=== PATIENT | female | born 1975 | race African-American/Black ===

== ENCOUNTER 2018-06-16 07:16 | Emergency (ER) | payer SELFPAY ==
[~2018-06-16] VITALS: Ht 167.6 cm; Wt 78.0 kg
[2018-06-16 07:27] VITALS: BP 137/57
[2018-06-16] MEDS ORDERED: DIPHTH,PERTUSS(ACELL),TET TOX 0.5 ML DISP.SYRIN. VAX IM ONE (07:30)
[2018-06-16] MEDS ORDERED: LIDOCAINE 2% 20 ML VIAL. IJ ONE (07:30)
--- NOTE | 2018-06-16 08:47 | PHYS DOC ---
Past Medical History Past Medical History: No Pertinent History Past Surgical History: Other Additional Past Surgical Histo: LEFT EYE Alcohol Use: Occasionally Drug Use: None Adult General Chief Complaint Chief Complaint: LACERATION/AVULSION HPI HPI Patient is a 42 year old f p/w chief complaint of laceration to the right pinky finger while reaching for a knife. occurred 8 pm, no n/t Current Medications Current Medications Current Medications Medications (Trade) Dose Ordered Sig/Prem Start Time Stop Time Status Last Admin Dose Admin Diphtheria/ Tetanus/Acell Pertussis (Boostrix) 0.5 ml ONCE ONCE 06/16/18 07:30 06/16/18 07:32 DC 06/16/18 08:04 0.5 ML Lidocaine HCl 20 ml 1X ONCE 06/16/18 07:30 06/16/18 07:32 DC 06/16/18 08:06 20 ML Allergies Allergies Allergies Coded Allergies Type Severity Reaction Last Updated Verified No Known Drug Allergies 10/08/14 No Physical Exam Physical Exam Constitutional: Well developed, well nourished, no acute distress, non-toxic appearance. [] HENT: Normocephalic, atraumatic, bilateral external ears normal, oropharynx moist, no oral exudates, nose normal. [] Skin: there is 2 cm laceration dorsum of pinky finger affected hand. tendon not seen. intact function noted against resistance sensation intact. Extremities: No tenderness, no cyanosis, no clubbing, ROM intact, no edema. [] Neurologic: Alert and oriented X 3, normal motor function, normal sensory function, no focal deficits noted. [] Psychologic: Affect normal, judgement normal, mood normal. [] Current Patient Data Vital Signs Vital Signs Date Time Temp Pulse Resp B/P (MAP) Pulse Ox O2 Delivery O2 Flow Rate FiO2 06/16/18 07:27 98.4 94 16 137/57 (83) 98 Room Air 98.4 EKG EKG [] Radiology/Procedures Radiology/Procedures [] Course & Med Decision Making Course & Med Decision Making Pertinent Labs and Imaging studies reviewed. (See chart for details) Procedure note verbal consent obtained wound was irrigated profusely additional block was given 2% lidocaine 3 mL adequate anesthesia was obtained no foreign body noted injury closed with 6 5-0 nylon simple interrupted sutures patient tolerated well hemostasis was obtained return precautions were provided Wound care structures given suture removal 10 days tetanus was given in the emergency room [place] Disclaimer Dragon Disclaimer This electronic medical record was generated, in whole or in part, using a voice recognition dictation system. Departure Departure Impression: Primary Impression: Laceration Disposition: 01 HOME, SELF-CARE Condition: STABLE Referrals: NO PCP (PCP) Patient Instructions: Laceration Care, Adult, [id number] Additional Instructions: suture removal ten days MAGNUS DE LEON MD Jun 16, 2018 08:47
== END 2018-06-16 08:22 | disposition home or self-care (01) ==
LOC: ER 07:16
DX: S61.216A Laceration without foreign body of right little finger without damage to nail, initial encounter (principal); W26.0XXA Contact with knife, initial encounter; Y93.89 Activity, other specified; Y92.89 Other specified places as the place of occurrence of the external cause; Y99.8 Other external cause status
CPT/HCPCS: 12001; 90471; 90715; 99283; J2001

== ENCOUNTER 2019-06-02 10:17 | Emergency (ER) | payer BC ==
[~2019-06-02] VITALS: Ht 167.6 cm; Wt 78.0 kg
[2019-06-02 10:49] VITALS: BP 107/75
--- NOTE | 2019-06-02 11:04 | PHYS DOC ---
Past Medical History Past Medical History: No Pertinent History (SANDEEP CANO APRN) Past Surgical History: Other Additional Past Surgical Histo: LEFT EYE (SANDEEP CANO APRN) Alcohol Use: Occasionally Drug Use: None (SANDEEP CANO APRN) Adult General Chief Complaint Chief Complaint: COUGH HPI HPI Patient is a 43 year old female who presents with 2 days of chills, body aches, dry cough, nasal congestion and drainage, ear pain, decreased appetite. Patient rates her current pain a 7 out of 10. Patient states she has not been taking any medications for her symptoms. (SANDEEP CANO APRN) Review of Systems Review of Systems Constitutional: fever or chills [] HENT: nasal congestion or sore throat [] Respiratory: cough or denies shortness of breath [] Musculoskeletal: Bodyaches. Denies back pain or joint pain [] All other systems were reviewed and found to be within normal limits, except as documented in this note. (SANDEEP CANO APRN) Current Medications Current Medications Current Medications Medications (Trade) Dose Ordered Sig/Prem Start Time Stop Time Status Last Admin Dose Admin Ibuprofen (Motrin) 600 mg 1X ONCE 06/02/19 11:15 06/02/19 11:16 DC 06/02/19 11:15 600 MG (ALYSON BERMUDEZ DO) Allergies Allergies Allergies Coded Allergies Type Severity Reaction Last Updated Verified No Known Drug Allergies 10/08/14 No (ALYSON BERMUDEZ DO) Physical Exam Physical Exam Constitutional: Well developed, well nourished, no acute distress, non-toxic appearance. [] HENT: Normocephalic, atraumatic, bilateral external ears normal, oropharynx moist, no oral exudates, nose normal. Post nasal drip. [] Eyes: PERRLA, EOMI, conjunctiva normal, no discharge. [] Neck: Normal range of motion, no tenderness, supple, no stridor. [] Cardiovascular:Heart rate regular rhythm, no murmur [] Lungs & Thorax: Bilateral breath sounds clear to auscultation [] Abdomen: Bowel sounds normal, soft, no tenderness, no masses, no pulsatile masses. [] Skin: Warm, dry, no erythema, no rash. [] Back: No tenderness, no CVA tenderness. [] Extremities: No tenderness, no cyanosis, no clubbing, ROM intact, no edema. [] Neurologic: Alert and oriented X 3, normal motor function, normal sensory function, no focal deficits noted. [] Psychologic: Affect normal, judgement normal, mood normal. [] (SANDEEP CANO APRN) Current Patient Data Vital Signs Vital Signs Date Time Temp Pulse Resp B/P (MAP) Pulse Ox O2 Delivery O2 Flow Rate FiO2 06/02/19 10:49 99.7 103 16 107/75 (86) 95 Room Air 99.7 (ALYSON BERMUDEZ DO) Lab Values Laboratory Tests Test 06/02/19 10:48 Influenza Type A Antigen Positive (NEGATIVE) Influenza Type B Antigen Negative (NEGATIVE) (ALYSON BERMUDEZ DO) Lab Values Laboratory Tests Test 06/02/19 10:48 Influenza Type A Antigen Positive (NEGATIVE) Influenza Type B Antigen Negative (NEGATIVE) (SANDEEP CANO APRN) EKG EKG [] (SANDEEP CANO APRN) Radiology/Procedures Radiology/Procedures [] (SANDEEP CANO APRN) Course & Med Decision Making Course & Med Decision Making Patient states she's been eating some soup and drinking fluids. Alert and oriented. Ambulatory with steady gait. Speaks in full clear sentences. Skin pink warm and dry. Lungs are clear to auscultation all lobes. Throat is pink without exudates, swelling. Postnasal drip present. Bilateral tympanic are white but foggy. Abdomen soft and nontender. She denies any past medical history. Patient denies shortness of breath, chest pain, nausea, vomiting, diarrhea. Patient is educated use [id number] cold and cough medications. She is also educated on nasal sprays. Flu A+. (SANDEEP CANO APRN) Dragon Disclaimer Dragon Disclaimer This electronic medical record was generated, in whole or in part, using a voice recognition dictation system. (SANDEEP CANO APRN) Departure Departure Impression: Primary Impression: Influenza A Disposition: 01 HOME, SELF-CARE Condition: STABLE Referrals: NO PCP (PCP) Patient Instructions: Influenza A (H1N1) Additional Instructions: Take medication with food and as prescribed. Try using some nasal sprays. Ibuprofen or Tylenol to help with pain or fever. Drink plenty of fluids. Scripts Benzonatate (TESSALON PERLE) 100 Mg Capsule 1 CAP PO TID, #30 CAP Prov: SANDEEP CANO APRN 06/02/19 Oseltamivir Phosphate (Oseltamivir Phosphate) 75 Mg Capsule 1 CAP PO BID for 5 Days, #10 CAP 0 Refills Prov: SANDEEP CANO APRN 06/02/19 Attending Signature Attending Signature I have reviewed the PA/SENIOR TRAINING AND DEVELOPMENT REP's note and plan of care. I was available for consultation as needed during the patient's visit in the emergency department. I agree with the clinical impression, plan, and disposition. (ALYSON BERMUDEZ DO) SANDEEP CANO APRN Jun 02, 2019 11:04 ALYSON BERMUDEZ DO Jun 03, 2019 07:51
[2019-06-02] MEDS ORDERED: IBUPROFEN 200 MG TABLET. PO ONE (11:15)
[2019-06-02 11:38] LABS: INFLUENZA A PATIENT POSITIVE (NEGATIVE); INFLUENZA B PATIENT NEGATIVE (NEGATIVE)
[2019-06-02] MEDS ORDERED: BENZ100C PO (11:46)
[2019-06-02] MEDS ORDERED: OSEL75CA13 PO (11:46)
== END 2019-06-02 12:01 | disposition home or self-care (01) ==
LOC: ER 10:17
DX: J10.1 Influenza due to other identified influenza virus with other respiratory manifestations (principal); R50.9 Fever, unspecified; R63.0 Anorexia; R09.81 Nasal congestion; R05 Cough; Z98.890 Other specified postprocedural states
CPT/HCPCS: 87804; 99284

== ENCOUNTER 2021-04-23 11:58 | Emergency (ER) | payer BC ==
[~2021-04-23] VITALS: Ht 167.6 cm; Wt 73.6 kg
[~2021-04-23 11:58] MED LIST: BENZ100C PO; OSEL75CA13 PO
--- NOTE | 2021-04-23 13:18 | RAD ---
Single view of the chest. 04/23/2021 12:56 PM Indication: Reason: Cough x2 mo Comparison: None Findings: There is no focal consolidation. There is no pleural effusion or pneumothorax. The cardiome diastinal silhouette and pulmonary vasculature are within normal limits. No acute osseous abnormaliti es are seen. Impression: No evidence of acute cardiopulmonary process. Electronically signed by: Cj Brady MD (04/23/2021 1:16 PM) [id number]
[2021-04-23] MEDS ORDERED: FLUT16SP NS (13:39)
--- NOTE | 2021-04-23 13:39 | PHYS DOC ---
Past Medical History Past Medical History: No Pertinent History Past Surgical History: Other Additional Past Surgical Histo: left retinal detachment Smoking Status: Never Smoker Alcohol Use: Rarely Drug Use: None General Adult EDM: Chief Complaint: COUGH HPI: HPI: Patient is a 45 year old female who presents with 2-month history of cough and nasal congestion. Patient reports she has had multiple negative Covid test. She has taken Sudafed intermittently, with some symptom relief. She states that her cough is still lingering. She denies fever, chills, headache, throat pain, shortness of breath, chest pain, palpitations. Review of Systems: Review of Systems: 12 systems reviewed. ROS negative except as mentioned in HPI. Heart Score: C/O Chest Pain: No Allergies: Allergies: Allergies Coded Allergies Type Severity Reaction Last Updated Verified cat dander Allergy Intermediate coughing, sneezing 04/23/21 Yes dog dander Allergy Intermediate coughing, sneezing 04/23/21 Yes mold Allergy Unknown coughing, sneezing 04/23/21 Yes Physical Exam: PE: Constitutional: Well developed, well nourished, no acute distress, non-toxic appearance. HENT: Normocephalic, atraumatic, bilateral external ears normal, oropharynx mo ist, nose normal. Neck: Normal range of motion, no tenderness, supple, no stridor. Cardiovascular: Heart rate regular rhythm, no murmur. Lungs & Thorax: Bilateral breath sounds clear to auscultation. Skin: Warm, dry, no erythema, no rash. Neurologic: Alert and oriented X 3, normal motor function, normal sensory function, no focal deficits noted. Current Patient Data: Vital Signs: Vital Signs Date Time Temp Pulse Resp B/P (MAP) Pulse Ox O2 Delivery O2 Flow Rate FiO2 04/23/21 14:00 88 16 122/65 (84) 99 Room Air 04/23/21 12:08 98.3 104 20 130/81 (97) 98 Room Air 98.3 Radiology/Procedures: Radiology/Procedures: PROCEDURE: PORTABLE CHEST 1V Single view of the chest. 04/23/2021 12:56 PM Indication: Reason: Cough x2 mo Comparison: None Findings: There is no focal consolidation. There is no pleural effusion or pneu mothorax. The cardiomediastinal silhouette and pulmonary vasculature are within normal limits. No acute osseous abnormalities are seen. Impression: No evidence of acute cardiopulmonary process. Electronically signed by: Cj Brady MD (04/23/2021 1:16 PM) [id number] Course & Med Decision Making: Course & Med Decision Making Pertinent Labs and Imaging studies reviewed. (See chart for details) Patient history presentation consistent with viral URI. Work-up today will inc lude flu and Covid swabs as well as a chest x-ray. Chest x-ray shows no evidence of pneumonia. Patient discharge plan will include supportive treatment with fluticasone nasal spray, humidifier at night, and Mucinex decongestant. Patient understands and is agreeable to discharge plan. Dragon Disclaimer: [employer] Disclaimer: This electronic medical record was generated, in whole or in part, using a voice recognition dictation system. Departure Departure Impression: Primary Impression: Viral URI with cough Disposition: 01 HOME / SELF CARE / HOMELESS Condition: STABLE Referrals: NO PCP (PCP) Patient Instructions: Upper Respiratory Infection, Adult, [id number] Additional Instructions: As discussed, you should use a humidifier to sleep at night. Additionally, fluticasone nasal spray was prescribed. You may also take [id number] Mucinex (guaifenesin) to help break up any nasal or chest congestion. Please return to the emergency department if your symptoms worsen or you develop new symptoms. Scripts Fluticasone Propionate (FLUTICASONE PROPIONATE NASAL SPRAY) 16 Gm [place].susp 2 SPRAY NS DAILY, #1 BOTTLE 0 Refills Prov: HOOD MADDEN 04/23/21 HOOD MADDEN Apr 23, 2021 13:39
[2021-04-23 14:00] VITALS: BP 122/65
[2021-04-23 14:07] LABS: INFLUENZA A PATIENT NEGATIVE (NEGATIVE); INFLUENZA B PATIENT NEGATIVE (NEGATIVE)
--- NOTE | 2021-04-26 09:42 | NUR ---
IP: Informed pt of negative covid test. Pt verbalized understanding.
== END 2021-04-23 14:20 | disposition home or self-care (01) ==
LOC: ER 11:58
DX: J06.9 Acute upper respiratory infection, unspecified (principal); Z20.822 Contact with and (suspected) exposure to COVID-19; Z88.8 Allergy status to other drugs, medicaments and biological substances
CPT/HCPCS: 71045; 87804; 99284; U0003; U0005